=== PATIENT | male | born 1980 | race Caucasian/White ===

== ENCOUNTER 2018-10-05 15:21 | Emergency (ER) | payer MEDICAID ==
[~2018-10-05] VITALS: Ht 162.6 cm; Wt 59.1 kg
[2018-10-05] MEDS: PERTUSS(ACELL),DIPH,TET VAC/PF 0.5 ML VIAL IM ONE (17:13)
[2018-10-05] MEDS: LIDOCAINE 1% 10 ML VIAL INJ ONE (17:13)
[2018-10-05 17:45] VITALS: BP 108/74
[2018-10-05] MEDS: BACITRACIN 0.9 GM PACKET OINTMENT TP ONE (18:02)
== END 2018-10-05 18:14 | disposition home or self-care (01) ==
LOC: EMS 15:25
DX: S51.812A Laceration without foreign body of left forearm, initial encounter (principal); W45.8XXA Other foreign body or object entering through skin, initial encounter; Y93.89 Activity, other specified; Y92.89 Other specified places as the place of occurrence of the external cause; Y99.8 Other external cause status
CPT/HCPCS: 12001; 90471; 90715; 99283; J3490